=== PATIENT | female | born 1960 | race Caucasian/White ===

== ENCOUNTER 2016-06-19 17:56 | Emergency (ER) | payer SELFPAY ==
[~2016-06-19] VITALS: Ht 162.6 cm; Wt 50.0 kg
[2016-06-19 17:57] VITALS: BP 172/85; PULSE 94; RESP 12; TEMP 97.5; O2SAT 100
--- NOTE | 2016-06-19 19:41 | PD ---
HPI Chief Complaint: Psychiatric Symptoms Time Seen by Provider: 19:41 Travel History International Travel<30 days: No Contact w/Intl Traveler<30days: No Traveled to known affect area: No History of Present Illness HPI 56 year-old female history of bipolar disorder presents to emergency department for evaluation of worsening paranoia. Patient has not been taking medication for an extended amount of time. She is accompanied by her boyfriend's sister who states that it things are getting "out of control." She states that the patient is calling police multiple times a day. She thinks the people are after her. She believes that she is under arrest for people are trying to find her. She is concerned the people are stealing her things and moving her items. She tells me that people are watching her and her telling her to hurt herself or others but she does not want to. She denies any illicit drug use. She does report alcohol consumption and tobacco cigarette smoking. She has no other symptoms to report. PFSH Past Medical History Hx Anticoagulant Therapy: No Cardiovascular Problems: Yes (CHOL) Diabetes: No Diminished Hearing: No Menopausal: Yes Ectopic : Yes (right tube removed) Past Surgical History Cholecystectomy: Yes Gynecologic Surgery: Yes (uterine ablasion) Social History Alcohol Use: Yes (occas. beer) Tobacco Use: Yes (1/2 PPD) Substance Use: No Allergies-Medications (Allergen,Severity, Reaction): Coded Allergies: Eucalyptus Tree (Verified Allergy, Severe, 04/16/16) Tetracycline (Verified Allergy, Severe, 04/16/16) Codeine (Verified Allergy, Intermediate, 04/16/16) Uncoded Allergies: ANTIHISTAMINES (Allergy, Unknown, 04/11/16) . Reported Meds & Prescriptions Reported Meds & Active Scripts Active No Active Prescriptions or Reported Medications Review of Systems Except as stated in HPI: all other systems reviewed are Neg Physical Exam Narrative GENERAL: Well-nourished, well-developed female patient, ambulatory and in no acute distress SKIN: Warm and dry. HEAD: Normocephalic. EYES: No scleral icterus. No injection or drainage. NECK: Supple, trachea midline. No JVD or lymphadenopathy. CARDIOVASCULAR: Regular rate and rhythm without murmurs, gallops, or rubs. RESPIRATORY: Breath sounds equal bilaterally. No accessory muscle use. GASTROINTESTINAL: Abdomen soft, non-tender, nondistended. MUSCULOSKELETAL: No cyanosis, or edema. BACK: Nontender without obvious deformity. No CVA tenderness. Data Data Last Documented VS Vital Signs Date Time Temp Pulse Resp B/P Pulse Ox O2 Delivery O2 Flow Rate FiO2 06/19/16 17:57 97.5 94 12 172/85 100 Room Air Orders Complete Blood Count With Diff (06/19/16 19:41) Basic Metabolic Panel (Bmp) (06/19/16 19:41) Urinalysis - C+S If Indicated (06/19/16 19:41) Drug Screen, Random Urine (06/19/16 19:41) Alcohol (Ethanol) (06/19/16 19:41) Psych Screen (06/19/16 19:41) MDM Medical Decision Making Medical Screen Exam Complete: Yes Emergency Medical Condition: Yes Medical Record Reviewed: Yes Differential Diagnosis Mood disorder versus personality disorder versus acute psychosis versus UTI Narrative Course 56 year-old female presents the emergency department for evaluation. Patient appears without distress. She is experiencing increasing paranoia and seems to be having auditory and visual hallucinations worsening this paranoia. She wishes to stay voluntary and states that she needs psychiatric help. Labs for medical clearance for psychiatric evaluation ordered. Pending no acute abnormality, patient is medically cleared to undergo psychiatric screening for further evaluation and disposition. Mental health screening discussed with the patient. Psychiatric screen ordered. Diagnosis Primary Impression: Paranoia Scripts No Active Prescriptions or Reported Meds Condition: Kamlesh Leonora GuerreroP Jun 19, 2016 19:41
[2016-06-19 21:00] LABS: AUTOMATED NEUTROPHIL # 5.2 TH/MM3 (1.8-7.7); BASOPHIL # 0.1 TH/MM3 (0-0.2); BASOPHIL % 0.9 % (0.0-2.0); EOSINOPHIL # 0.1 TH/MM3 (0-0.4); EOSINOPHIL % 0.8 % (0.0-4.0); HEMATOCRIT 47.2 % (35.0-46.0); HEMO FLAGS DIFF FINAL; LYMPH % 28.5 % (9.0-44.0); LYMPHOCYTE # 2.4 TH/MM3 (1.0-4.8); MEAN CELL VOLUME 91.7 FL (80.0-100.0); MEAN CORPUSCULAR HEMOGLOBIN 30.8 PG (27.0-34.0); MEAN CORPUSCULAR HGB CONC 33.6 % (32.0-36.0); MONO % 8.3 % (0.0-8.0); NEUT % 61.5 % (16.0-70.0); PLATELET COUNT 400 TH/MM3 (150-450); RED BLOOD COUNT 5.14 MIL/MM3 (4.00-5.30); RED CELL DISTRIBUTION WIDTH 13.5 % (11.6-17.2); WHITE BLOOD COUNT 8.5 TH/MM3 (4.0-11.0)
[2016-06-19 21:10] LABS: AMPHETAMINE, URINE NEG (NEG); BARBITURATES, URINE NEG (NEG); COCAINE, URINE NEG (NEG)
[2016-06-19 21:21] LABS: ANION GAP 8 MEQ/L (5-15); BICARBONATE 29.1 MEQ/L (21.0-32.0); BLOOD UREA NITROGEN 9 MG/DL (7-18); CHLORIDE 100 MEQ/L (98-107); GLOMERULAR FILTRATION RATE 70 ML/MIN (>89); POTASSIUM 3.9 MEQ/L (3.5-5.1); SODIUM (NA) 137 MEQ/L (136-145)
[2016-06-20 04:00] VITALS: BP 155/72; PULSE 72; RESP 16; TEMP 98.7; O2SAT 96
[2016-06-20 06:15] LABS: BLOOD, URINE SMALL (NEG); GLUCOSE,URINE NEG (NEG); KETONE, URINE 15 mg/dL (NEG); NITRITE,URINE NEG (NEG); URINE COLOR YELLOW (YELLW/STRAW)
[2016-06-20 06:25] LABS: BACTERIA, URINE MANY /hpf; COMMENT (UR) CULTURE INDICATED; CULTURE IF INDICATED CULTURE INDICATED; MUCUS URINE MANY /lpf (OCC); RENAL EPITHELIAL CELLS <1 /hpf; SQUAMOUS EPITHELIAL CELL URINE 123 /hpf (0-5)
[2016-06-20 09:14] VITALS: BP 128/84; PULSE 90; RESP 17; O2SAT 98
[2016-06-20 13:29] VITALS: BP 124/75; PULSE 84; RESP 16; O2SAT 98
--- NOTE | 2016-06-20 16:48 | PD ---
Physical Exam Narrative Patient was medically cleared by ED physician. Patient was seen by psychiatrist today. Patient was offered admission however patient refused. Psychiatrist advised patient to follow up with mental health as outpatient. Data Data Last Documented VS Vital Signs Date Time Temp Pulse Resp B/P Pulse Ox O2 Delivery O2 Flow Rate FiO2 06/20/16 13:29 84 16 124/75 98 Room Air 06/20/16 04:00 98.7 Orders Complete Blood Count With Diff (06/19/16 19:41) Basic Metabolic Panel (Bmp) (06/19/16 19:41) Urinalysis - C+S If Indicated (06/19/16 19:41) Drug Screen, Random Urine (06/19/16 19:41) Alcohol (Ethanol) (06/19/16 19:41) Psych Screen (06/19/16 19:41) Urine Culture (06/20/16 05:30) Diet Regular Basic (06/20/16 Breakfast) Diet Regular Basic (06/20/16 Lunch) Labs Laboratory Tests Test 06/19/16 06/19/16 06/20/16 20:15 20:25 05:30 Sodium Level 137 MEQ/L Potassium Level 3.9 MEQ/L Chloride Level 100 MEQ/L Carbon Dioxide Level 29.1 MEQ/L Anion Gap 8 MEQ/L Blood Urea Nitrogen 9 MG/DL Creatinine 0.84 MG/DL Estimat Glomerular Filtration 70 ML/MIN Rate Random Glucose 91 MG/DL Calcium Level 9.1 MG/DL Ethyl Alcohol Level LESS THAN 3 MG/DL White Blood Count 8.5 TH/MM3 Red Blood Count 5.14 MIL/MM3 Hemoglobin 15.9 GM/DL Hematocrit 47.2 % Mean Corpuscular Volume 91.7 FL Mean Corpuscular Hemoglobin 30.8 PG Mean Corpuscular Hemoglobin 33.6 % Concent Red Cell Distribution Width 13.5 % Platelet Count 400 TH/MM3 Mean Platelet Volume 7.9 FL Neutrophils (%) (Auto) 61.5 % Lymphocytes (%) (Auto) 28.5 % Monocytes (%) (Auto) 8.3 % Eosinophils (%) (Auto) 0.8 % Basophils (%) (Auto) 0.9 % Neutrophils # (Auto) 5.2 TH/MM3 Lymphocytes # (Auto) 2.4 TH/MM3 Monocytes # (Auto) 0.7 TH/MM3 Eosinophils # (Auto) 0.1 TH/MM3 Basophils # (Auto) 0.1 TH/MM3 CBC Comment DIFF FINAL Differential Comment Urine Opiates Screen NEG Urine Barbiturates Screen NEG Urine Amphetamines Screen NEG Urine Benzodiazepines Screen NEG Urine Cocaine Screen NEG Urine Cannabinoids Screen NEG Urine Color YELLOW Urine Turbidity Slightly Urine pH 6.0 Urine Specific [place] 1.015 Urine Protein 30 mg/dL Urine Glucose (UA) NEG mg/dL Urine Ketones 15 mg/dL Urine Occult Blood SMALL Urine Nitrite NEG Urine Bilirubin NEG Urine Urobilinogen 0.2 MG/DL Urine Leukocyte Esterase LARGE Urine RBC 25 /hpf Urine Squamous Epithelial 123 /hpf Cells Urine Renal Epithelial Cells <1 /hpf Urine Bacteria MANY /hpf Urine Mucus MANY /lpf Microscopic Urinalysis Comment CULTURE INDICATED MDM Supervised Visit with JOSE GUADALUPE: No Narrative Course Patient was seen by ED physician and medically cleared. Patient was seen by psychiatrist and was offered admission however patient refused and wants to go home and follow with local physician. Diagnosis Primary Impression: Paranoia Patient Instructions: General Instructions Additional Instruction: Follow-up with local physician. Scripts Sulfamethoxazole-Trimethoprim (Bactrim DS)800-160 Mg Tab1 Tab PO BID #6 TAB Prov:Allan Gilliam MD 06/20/16 Disposition: DISCHARGE HOME Condition: Stable Allan Gilliam MD Jun 20, 2016 16:48
[2016-06-20] MEDS ORDERED: BACT800T5 PO (17:06)
[2016-06-20 17:33] VITALS: BP 119/64; PULSE 81; RESP 18; O2SAT 98
--- NOTE | 2016-06-20 17:35 | MB ---
cc: ERWIN SWARTZ MD DATE OF CONSULTATION 06/20/2016 REQUESTING PHYSICIAN Emergency department REASON FOR CONSULTATION Voluntary psychiatric evaluation. HISTORY OF PRESENT ILLNESS Ms. Wu is a 56-year-old female with reported history of possibly bipolar disorder who presents on a voluntary basis for paranoia. Apparently from the ED notes it appears that the patient's boyfriend's sister says that she is calling the police multiple times a day and feels like people are out to get her. Reviewing the electronic medical record, I see no prior psychiatric contact within our system. The patient seen and examined. Chart reviewed. Case discussed with nurse in the J pod. On my examination today, the patient tells me "the place I have live in, things are put in and taken out. The phone I had was being controlled by another computer. I can tell because of the thickness of the phone." She says that this is been going on for about 6 months and she has in fact been calling the police because she does not know who is doing it. She describes hearing the sound of people on her roof but denies any auditory hallucinations of voices or command auditory hallucinations. No visual hallucinations. She adamantly and repeatedly denies any suicidal or homicidal ideation. Mood is a little distressed as one might be if one believes this was happening. No real depressive or hypomanic / manic symptoms though. No other delusions. The remainder of the psychiatric ROS is negative. The patient is extremely ambivalent about coming into the hospital and ultimately declines voluntary psychiatric hospitalization. PAST PSYCHIATRIC HISTORY The patient reports a possible prior diagnosis of bipolar disorder. She last saw a psychiatrist four years ago when she was in [place]. She reports that she was hospitalized around the same time from her only suicide attempt when she tried to cut her wrists. FAMILY HISTORY The patient reports that her mother struggled with alcohol use issues. No other family psychiatric history to speak of. Denies any family history of suicide. CHEMICAL DEPENDENCY HISTORY The patient reports that she has a history of daily drinking in the past. She denies any active substance use and her toxicology is negative. SOCIAL HISTORY The patient reports that she has moved here from [place] 3 years ago. She is and has no children. She has a tenth grade education. 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 She denies any or legal history. Denies any access to guns or firearms. PAST MEDICAL HISTORY The patient denies any history of medical issues. Urinalysis here in the ED is potentially concerning for UTI. REVIEW OF SYSTEMS No reported headache, vision or hearing changes, chest pain, shortness of breath, bowel or bladder issues. No other somatic complaints. PHYSICAL EXAMINATION VITAL SIGNS: Temperature is 98.7, pulse is 84, respirations 16, blood pressure is 124/75, pulse oximetry 98% on room air. A physical examination was completed in the emergency room by the ER staff and the patient was medically cleared. On my examination today, the patient appears to be in no acute physical distress. No abnormal motor movements noted. LABORATORY Laboratory reviewed: CBC is significant for mildly elevated hemoglobin of 15.9. BMP is significant for mildly decreased GFR at 70. Toxicology is negative as I said. Urinalysis has many bacteria and large leukocyte esterase, although I do not see any indication about the number of white blood cells. Urine culture is pending. MENTAL STATUS EXAM The patient is casually dressed. She is well-groomed and appears to be maintaining basic hygiene. She is awake and alert. Registration is 3/3 and recall is 1/3 at 5 minutes. She is oriented to person, place and date. She is able to spell the word world forward and backward except she does transpose the O and the L. She is able to name two items and repeat a phrase. Speech is within normal limits for rate, tone and volume. Language and fund of knowledge seem adequate and appropriate for age. Mood is fair and affect is blunted. Thought process linear within delusional system. Paranoia is present. No other delusions. Endorses auditory phenomena of hearing, foot falls, etc. on her roof. No command auditory hallucinations. No visual hallucinations. Insight and judgment are likely fair to poor at best. ASSESSMENT/PLAN 1. Other psychotic disorder, F28 This is a 56-year-old female with psychiatric history as detailed above who presents on a voluntary basis apparently brought in by family out of concerned for psychosis. The patient does indeed endorse what sounds like paranoid delusions although there is no real evidence of any affective disturbance. She does appear to have a urinalysis concerning for UTI but mental status testing is not indicative of delirium. She may have some sort of psychiatric history in the past that would predispose her to paranoia. She is presently denying suicidal or homicidal ideation. She appears to be attending very well to her basic needs and is well groomed. The patient does not meet Moreno ACT criteria at this time after weighing the relevant factors. I have strongly recommended that she should consider voluntary psychiatric hospitalization but she has declined. I have no basis to retain this patient involuntarily at this time, I have strongly recommended that she follow up with an outpatient psychiatric provider and we will provide the appropriate referrals. I have counseled the patient regarding warning signs for need to return to the psychiatric emergency room as part of a general safety plan. The patient is otherwise clear for discharge from a psychiatric standpoint, although I fear that her prognosis is guarded if she does not seek psychiatric help on outpatient basis. Erwin MESA /4:57 PM /5:14 PM ROSA
[2016-06-20 21:01] VITALS: BP 120/68
== END 2016-06-20 21:04 | disposition home or self-care (01) ==
LOC: NETRI 17:56 → NEPA 06-20 21:04
DX: F28 Other psychotic disorder not due to a substance or known physiological condition (principal); F22 Delusional disorders; F17.210 Nicotine dependence, cigarettes, uncomplicated; R82.90 Unspecified abnormal findings in urine
CPT/HCPCS: 80048; 80307; 80320; 81001; 85025; 87086; 99284

== ENCOUNTER 2016-06-20 21:35 | Emergency (ER) | payer SELFPAY ==
[~2016-06-20] VITALS: Ht 162.6 cm; Wt 54.0 kg
[~2016-06-20 21:35] MED LIST: BACT800T5 PO
[2016-06-20 21:36] VITALS: BP 129/79; PULSE 80; RESP 16; TEMP 97.8; O2SAT 98
--- NOTE | 2016-06-20 23:13 | PD ---
HPI Chief Complaint: Psychiatric Symptoms Time Seen by Provider: 22:45 Travel History International Travel<30 days: No Contact w/Intl Traveler<30days: No Traveled to known affect area: No History of Present Illness HPI The patient is a 56-year-old female who presents emergency department for psychiatric evaluation. Patient was evaluated in the emergency department yesterday by the psychiatrist who recommended admission, over, the patient wanted to try outpatient follow-up. The patient denied any suicidal or homicidal ideation, however, she thinks people are "out to get her ". The patient repeatedly states "I'm not a bad person ". The patient does occasionally drink alcohol, denies any illicit drug use. The patient does have a history of paranoia and thinks she was diagnosed with bipolar affective disorder in the past. She denies any current suicidal or homicidal ideation and denies any concurrent illicit drug use. The patient denies any current physical complaints. PFSH Past Medical History Hx Anticoagulant Therapy: No Bipolar Disorder: Yes Anxiety: Yes Cardiovascular Problems: Yes (CHOL) Diabetes: No Diminished Hearing: No Psychiatric: Yes (suicidal approx 2012) Tetanus Vaccination: < 5 Years Influenza Vaccination: No Menopausal: Yes Ectopic : Yes (right tube removed) Past Surgical History Cholecystectomy: Yes Gynecologic Surgery: Yes (uterine ablasion) Social History Alcohol Use: Yes (occas. beer) Tobacco Use: Yes (2 PPD) Substance Use: No (PT DENIES) Allergies-Medications (Allergen,Severity, Reaction): Coded Allergies: Eucalyptus Tree (Verified Allergy, Severe, rash, 06/20/16) Tetracycline (Verified Allergy, Severe, rash, 06/20/16) Codeine (Verified Allergy, Intermediate, rash, 06/20/16) Uncoded Allergies: ANTIHISTAMINES (Allergy, Unknown, 04/11/16) . Reported Meds & Prescriptions Reported Meds & Active Scripts Active Bactrim DS (Sulfamethoxazole-Trimethoprim) 800-160 Mg Tab 1 Tab PO BID Review of Systems Except as stated in HPI: all other systems reviewed are Neg General / Constitutional: No: Fever Cardiovascular: No: Chest Pain or Discomfort Respiratory: No: Shortness of Breath Gastrointestinal: No: Nausea, Vomiting, Abdominal Pain Musculoskeletal: No: Myalgias Psychiatric: Positive: Disorder of Thought Physical Exam Narrative GENERAL: Awake, alert, pleasant 56-year-old female who appears her stated age and is in no acute respiratory distress. SKIN: Warm and dry. HEAD: Atraumatic. Normocephalic. EYES: Pupils equal and round. No scleral icterus. No injection or drainage. ENT: No nasal bleeding or discharge. Mucous membranes pink and moist. NECK: Trachea midline. No JVD. CARDIOVASCULAR: Regular rate and rhythm. No murmur appreciated. RESPIRATORY: No accessory muscle use. Clear to auscultation. Breath sounds equal bilaterally. GASTROINTESTINAL: Abdomen soft, non-tender, nondistended. No rebound tenderness. MUSCULOSKELETAL: No obvious deformities. No clubbing. No cyanosis. No edema. NEUROLOGICAL: Awake and alert. No obvious cranial nerve deficits. Motor grossly within normal limits. Normal speech. Nonfocal. PSYCHIATRIC: Slightly paranoid. Data Data Last Documented VS Vital Signs Date Time Temp Pulse Resp B/P Pulse Ox O2 Delivery O2 Flow Rate FiO2 06/20/16 22:51 78 17 06/20/16 21:36 97.8 129/79 98 Room Air MDM Medical Decision Making Medical Screen Exam Complete: Yes Emergency Medical Condition: Yes Medical Record Reviewed: Yes Differential Diagnosis Differential diagnosis includes paranoia, psychosis, schizoaffective disorder, schizophrenia, substance induced mood disorder. Narrative Course I reviewed the patient's EMR and laboratory evaluation yesterday, labs are unremarkable except for small amount of RBCs in the patient's UA. I discussed the patient with Dr. Diaz, the psychiatrist, in the emergency department. The patient was placed under a Moreno act by psychiatry and will be admitted to the psychiatric unit. Physician Communication Physician Communication I discussed the patient with Dr. Diaz, psychiatrist, who placed the patient under a Moreno act in the emergency department. Diagnosis Primary Impression: Paranoia Admitting Information Admitting Physician Requests: Admit Condition: Stable Uzair Ruano MD Jun 20, 2016 23:13
[2016-06-21 02:45] VITALS: BP 131/73; PULSE 95; RESP 19; O2SAT 96
[2016-06-21 06:22] VITALS: BP 146/68; PULSE 86; RESP 18; TEMP 97.5; O2SAT 96
[2016-06-21 10:41] VITALS: BP 110/62; PULSE 51; RESP 16; O2SAT 95
[2016-06-21 18:41] VITALS: BP 114/70; PULSE 93; RESP 16; O2SAT 97
[2016-06-21 22:00] VITALS: BP 140/86; PULSE 88; RESP 18; O2SAT 98
[2016-06-22 02:11] VITALS: BP 133/75; PULSE 89; RESP 18; TEMP 97.4; O2SAT 97
== END 2016-06-22 03:41 ==
LOC: NEPE 21:35 → NEPJ 06-22 03:41
DX: F22 Delusional disorders (principal); F17.210 Nicotine dependence, cigarettes, uncomplicated
CPT/HCPCS: 99284

== ENCOUNTER 2016-09-02 15:06 | Emergency (ER) | payer SELFPAY ==
[~2016-09-02] VITALS: Ht 162.6 cm; Wt 54.0 kg
[2016-09-02 15:13] VITALS: BP 133/88; PULSE 76; RESP 16; TEMP 98.6; O2SAT 97
--- NOTE | 2016-09-02 15:54 | PD ---
HPI . right ankle injury Chief Complaint: Injury Time Seen by Provider: 15:43 Travel History International Travel<30 days: No Contact w/Intl Traveler<30days: No Traveled to known affect area: No History of Present Illness HPI 56-year-old female with history of paranoia here with complaints of right ankle pain. Patient tells me that she was washing a car when she tripped over a step and fell twisting her right foot and ankle. She is now complaining of pain in the right lateral foot near the cuneiform bones. She is unable to walk. At rest the pain is 0/10 without any radiation. With movement it becomes severe. She is comfortably sitting in the exam room. She denies any head injury. PFSH Past Medical History Hx Anticoagulant Therapy: No Bipolar Disorder: Yes Anxiety: Yes Cardiovascular Problems: Yes (CHOL) Diabetes: No Diminished Hearing: No Psychiatric: Yes (suicidal approx 2012) Immunizations Current: Yes Menopausal: Yes Ectopic : Yes (right tube removed) Past Surgical History Cholecystectomy: Yes Gynecologic Surgery: Yes (uterine ablasion) Social History Alcohol Use: No (STATES QUIT) Tobacco Use: Yes (/2 PPD) Substance Use: No (PT DENIES) Allergies-Medications (Allergen,Severity, Reaction): Coded Allergies: Eucalyptus Tree (Verified Allergy, Severe, rash, 09/02/16) Tetracycline (Verified Allergy, Severe, rash, 09/02/16) Codeine (Verified Allergy, Intermediate, rash, 09/02/16) Uncoded Allergies: ANTIHISTAMINES (Allergy, Unknown, ., 09/02/16) . Reported Meds & Prescriptions Reported Meds & Active Scripts Active Ibuprofen 800 Mg Tab 800 Mg PO TID Review of Systems General / Constitutional: No: Fever Eyes: No: Visual changes HENT: No: Headaches Cardiovascular: No: Chest Pain or Discomfort Respiratory: No: Shortness of Breath Gastrointestinal: No: Abdominal Pain Genitourinary: No: Dysuria Musculoskeletal: Positive: Pain (right ankle/swelling pain) Skin: No Rash Neurologic: No: Weakness Psychiatric: No: Depression Endocrine: No: Polydipsia Hematologic/Lymphatic: No: Easy Bruising Physical Exam Narrative GENERAL: AAO x 3, no acute distress, Well-nourished, well-developed patient. SKIN: Warm and dry. No visible rashes or bruising. Ecchymosis to the right lateral foot HEAD: Normocephalic and atraumatic. EYES: No scleral icterus. No injection or drainage. EOM intact, PERRLA ENT: No nasal drainage noted. Mucous membranes pink. Airway patent. NECK: Supple, trachea midline. No JVD. CARDIOVASCULAR: Regular rate and rhythm without murmurs, gallops, or rubs. RESPIRATORY: Breath sounds equal bilaterally. No accessory muscle use. No rhonchi or rales. GASTROINTESTINAL: Abdomen soft, non-tender, nondistended. EXTREMITIES: No cyanosis. Edema to the dorsum of the foot near navicular bone. Ecchymosis to the right lateral foot. Tenderness over the right lateral foot , 5th metatarsal. Movement is diminished secondary pain. BACK: Nontender without obvious deformity. No CVA tenderness. PSYCH: AAO x 3, normal affect. Data Data Last Documented VS Vital Signs Date Time Temp Pulse Resp B/P Pulse Ox O2 Delivery O2 Flow Rate FiO2 09/02/16 15:13 98.6 76 16 133/88 97 Room Air Orders Ankle, Complete ([id number]) (09/02/16 15:43) Foot, Complete ([id number]) (09/02/16 15:43) ^ Splint (09/02/16 17:09) Crutches (09/02/16 17:13) Fiberglass Short Leg Splint Ad (09/02/16 ) MDM Medical Decision Making Medical Screen Exam Complete: Yes Emergency Medical Condition: Yes Medical Record Reviewed: Yes Differential Diagnosis foot sprain, foot fracture, less likely Achilles tendon rupture Narrative Course 56-year-old female with history of paranoia here with complaints of right ankle pain. Patient tells me that she was washing a car when she tripped over a step and fell twisting her right foot and ankle. She is now complaining of pain in the right lateral foot near the cuneiform bones. She is unable to walk. At rest the pain is 0/10 without any radiation. With movement it becomes severe. She is comfortably sitting in the exam room. She denies any head injury. Patient seen and examined. She appears to have a fracture vs. foot sprain. Xray ordered. Last Impressions Foot X-Ray 09/02/16 [id number] Signed Impressions: Service Date/Time: Friday, September 02, 2016 16:07 - CONCLUSION: 1. Minimally displaced fracture of the base of the fifth metatarsal. No other fractures identified. Rojelio Kerns MD Ankle X-Ray 09/02/16 1543 Signed Impressions: Service Date/Time: Friday, September 02, 2016 16:02 - CONCLUSION: 1. Mildly displaced fracture at the base of the fifth metatarsal. Ankle mortise intact. Rojelio Kerns MD Discussed with Dr. Engle. Posterior short leg splint, crutches. Discussed immobilization and importance of podiatry follow up. Stressed to patient that delaying treatment and f/u can cause improper healing and complications later on. She verbalized understanding and states she will have to suck it up and pay for f/u. I have recommended a drill operator automatic. I offered pain medications and she declined requesting ibuprofen. I checked the splint prior to discharge and reiterated to patient that she needs to see podiatry. She confirmed that she will do so. Patient verbalized understanding of instructions, questions were answered, and thanked me for their care. I advised them if their condition worsens, please return to the nearest emergency room for further care. Diagnosis Primary Impression: Fracture of fifth metatarsal bone Qualified Code: S92.351A - Closed displaced fracture of fifth metatarsal bone of right foot, initial encounter Referrals: Yaritza Chavarria DPM Labeler Patient Instructions: General Instructions Additional Instructions: Please return to emergency department if your symptoms return or worsen. Follow up with your primary care provider. Take medications as prescribed. You will need to see a drill operator automatic within the next several days. Please make the appointment as soon as possible. The laying your appointment with the drill operator automatic can mean problems with proper healing and trouble walking in the future. Med/Other Pt SpecificInfo: Prescription(s) given Scripts Ibuprofen 800 Mg Ppp801 Mg PO TID #21 TAB Prov:Priscila Engle MD 09/02/16 Disposition: 01 DISCHARGE HOME Condition: Stable Michelle Longo Sep 02, 2016 15:54
--- NOTE | 2016-09-02 17:01 | RADHPO ---
EXAM DATE/TIME: 09/02/2016 16:02 [facility] COMPARISON: No previous studies available for comparison. INDICATIONS : Fall on stairs today MEDICAL HISTORY : None. SURGICAL HISTORY : None. ENCOUNTER: Initial ACUITY: 1 day PAIN SCORE: 10/10 LOCATION: Right ankle FINDINGS: Three view exam was performed of the right ankle. No acute fracture at the right ankle. A mildly disp laced fracture base of fifth metatarsal. CONCLUSION: 1. Mildly displaced fracture at the base of the fifth metatarsal. Ankle mortise intact. Rojelio Kerns MD on September 02, 2016 at 16:58 Board Certified Radiologist. This report was verified electronically.
--- NOTE | 2016-09-02 17:03 | RADHPO ---
EXAM DATE/TIME: 09/02/2016 16:07 [place] COMPARISON: No previous studies available for comparison. INDICATIONS : Fell on stairs today MEDICAL HISTORY : None. SURGICAL HISTORY : None. ENCOUNTER: Initial ACUITY: 1 day PAIN SCORE: 10/10 LOCATION: Right foot FINDINGS: Three view examination of the right foot demonstrates a minimally displaced fracture at the base of t he fifth metatarsal. No dislocation. No other fractures are identified. CONCLUSION: 1. Minimally displaced fracture of the base of the fifth metatarsal. No other fractures identified. Rojelio Kerns MD on September 02, 2016 at 17:00 Board Certified Radiologist. This report was verified electronically.
[2016-09-02] MEDS ORDERED: IBUP800T23 PO (17:09)
== END 2016-09-02 17:54 | disposition home or self-care (01) ==
LOC: PHEFT 15:06
DX: S92.351A Displaced fracture of fifth metatarsal bone, right foot, initial encounter for closed fracture (principal); F17.200 Nicotine dependence, unspecified, uncomplicated; Z86.79 Personal history of other diseases of the circulatory system; Z86.59 Personal history of other mental and behavioral disorders; W01.0XXA Fall on same level from slipping, tripping and stumbling without subsequent striking against object, initial encounter; Y93.H9 Activity, other involving exterior property and land maintenance, building and construction
CPT/HCPCS: 29515; 73610; 73630; 99283; E0113

== ENCOUNTER 2017-09-02 13:00 | Emergency (ER) | payer SELFPAY ==
[~2017-09-02] VITALS: Ht 162.6 cm; Wt 51.0 kg
[~2017-09-02 13:00] MED LIST changes: -BACT800T5 PO; +IBUP1TAB7 PO
[2017-09-02 13:02] VITALS: BP 194/80; PULSE 79; RESP 18; TEMP 98; O2SAT 97
[2017-09-02] MEDS ORDERED: AZIT250T3 PO (14:25)
--- NOTE | 2017-09-02 14:25 | PD ---
HPI Chief Complaint: Cold / Flu Symptoms Time Seen by Provider: 13:50 Travel History International Travel<30 days: No Contact w/Intl Traveler<30days: No Traveled to known affect area: No History of Present Illness HPI This is a 57-year-old female here with cough for 1 month. She reports it has recently become productive with yellow sputum. No fever chills. No chest pain or shortness of breath. Symptom severity is moderate. No aggravating or alleviating factors. PFSH Past Medical History Hx Anticoagulant Therapy: No Bipolar Disorder: Yes Anxiety: Yes Cardiovascular Problems: Yes (CHOL) Diabetes: No Diminished Hearing: No Psychiatric: Yes (suicidal approx 2012) Immunizations Current: Yes Influenza Vaccination: No ?: Not Menopausal: Yes Ectopic : Yes (right tube removed) Past Surgical History Cholecystectomy: Yes Gynecologic Surgery: Yes (uterine ablation) Social History Alcohol Use: Yes (WEEKLY) Tobacco Use: Yes (06/04 PPD) Substance Use: No Allergies-Medications (Allergen,Severity, Reaction): Coded Allergies: doxycycline (Unverified Allergy, Severe, rash, 09/02/17) minocycline (Unverified Allergy, Severe, rash, 09/02/17) tetracycline (Verified Allergy, Severe, "LEGS TURN BLUE", 09/02/17) tigecycline (Unverified Allergy, Severe, rash, 09/02/17) tree and shrub pollen (Unverified Allergy, Severe, rash, 09/02/17) codeine (Unverified Allergy, Intermediate, rash, 09/02/17) Uncoded Allergies: ANTIHISTAMINES (Allergy, Unknown, ., 09/02/16) . Reported Meds & Prescriptions Reported Meds & Active Scripts Active No Active Prescriptions or Reported Medications Review of Systems Except as stated in HPI: all other systems reviewed are Neg General / Constitutional: No: Fever Eyes: No: Visual changes HENT: No: Headaches Cardiovascular: No: Chest Pain or Discomfort Respiratory: Positive: Cough Gastrointestinal: No: Abdominal Pain Genitourinary: No: Dysuria Physical Exam Narrative GENERAL: Alert and well-appearing 57-year-old female SKIN: Warm and dry. HEAD: Normocephalic. EYES: No scleral icterus. No injection or drainage. NECK: Supple, trachea midline. No JVD or lymphadenopathy. CARDIOVASCULAR: Regular rate and rhythm without murmurs, gallops, or rubs. RESPIRATORY: Breath sounds equal bilaterally. No accessory muscle use. GASTROINTESTINAL: Abdomen soft, non-tender, nondistended. MUSCULOSKELETAL: No cyanosis, or edema. BACK: Nontender without obvious deformity. No CVA tenderness. Data Data Last Documented VS Vital Signs Date Time Temp Pulse Resp B/P (MAP) Pulse Ox O2 Delivery O2 Flow Rate FiO2 09/02/17 13:02 98.0 79 18 194/80 (118) 97 MDM Medical Decision Making Medical Screen Exam Complete: Yes Emergency Medical Condition: Yes Differential Diagnosis Bronchitis, pneumonia, URI Narrative Course 57-year-old female here with cough for 1 month. She is well-appearing. Vital signs are stable. Given the duration of the cough and patient is a current smoker she will be treated with azithromycin Diagnosis Primary Impression: Cough Referrals: Primary Care Physician Scripts Azithromycin (Azithromycin) 250 Mg Tab 250 MG PO DIRECTED for Infection, #6 TAB 0 Refills Take 2 tabs (500 mg) on day 1 then 1 tab daily x 4 days. Prov: Giselle Hansen 09/02/17 Disposition: 01 DISCHARGE HOME Condition: Stable Giselle Hansen Sep 02, 2017 14:25
== END 2017-09-02 14:36 | disposition home or self-care (01) ==
LOC: PHEFT 13:00
DX: R05 Cough (principal); F31.9 Bipolar disorder, unspecified; F41.9 Anxiety disorder, unspecified; F17.200 Nicotine dependence, unspecified, uncomplicated
CPT/HCPCS: 99283